=== PATIENT | male | born 1990 | race African-American/Black ===

== ENCOUNTER 2019-07-24 13:03 | Emergency (ER) | payer BC, SELFPAY ==
[2019-07-24 13:14] VITALS: BP 149/87; PULSE 72; RESP 20; TEMP 36.7; O2SAT 100
--- NOTE | 2019-07-24 13:14 | ED.DENTAL ---
HPI - Dental/Oral General Chief complaint: Dental/Oral Stated complaint: Tooth ache Time Seen by Provider: 07/24/19 13:15 Source: patient and RN notes reviewed History of Present Illness HPI Narrative: Patient is a 29-year-old male that presents the urgent care with complaints of left upper and lower dental pain. Patient states that started approximately 9 days ago and he is noticed some intermittent left swelling. Patient states that he has been taking Tylenol. Currently denies any fevers, bad taste in the mouth, nausea, vomiting. Patient states he did try to follow-up with his dentist but they are currently closed due to the pandemic. Patient denies any other acute complaints. No acute distress noted. Patient read the plan of care. Related Data Allergies Allergy/AdvReac Type Severity Reaction Status Date / Time No Known Allergies Allergy Verified 07/24/19 13:20 Review of Systems Review of Systems: Narrative: CONSTITUTIONAL: Denies fever, chills, or sweats. EYES: Denies visual changes, redness, or discharge. ENT: Denies rhinorrhea, congestion, sore throat, or otalgia. Reports of the left lower and upper dental pain CARDIOVASCULAR: Denies chest pain, palpitations, or edema. RESPIRATORY: Denies cough or dyspnea. GASTROINTESTINAL: Denies abdominal pain, nausea, vomiting, or diarrhea. GENITOURINARY: Denies dysuria or hematuria. SKIN: Denies rash or itching. MUSCULOSKELETAL: Denies back pain, joint pain, or myalgia. NEUROLOGIC: Denies headache, numbness, or weakness. All other systems reviewed are negative, except as documented in HPI. PMFSH Comments At the time of my signature, I reviewed and agree with the nursing past medical, surgical, social, and family history. There is no relevant family history pertinent to the patient complaint. Exam Narrative: Exam Narrative: GENERAL: This is a well-nourished, well-developed patient, in no apparent distress. HEAD: normocephalic, atraumatic. EYES: PERRL. Sclera clear/white. Vision is grossly intact. EARS: External ears normal NOSE: External nose normal with no obvious nasal discharge, nares without redness, no rhinorrhea. THROAT: Mucous membranes moist, posterior pharynx clear. Moderate swelling to the medial buccal aspect of the lower left quadrant without severe notable erythema or abscess. Good dentition without notable erosion or caries. NECK: Neck supple, non-tender without lymphadenopathy CARDIOVASCULAR: Regular rate and rhythm without murmurs, gallops, or rubs. RESPIRATORY: Clear to auscultation. Breath sounds equal bilaterally. No wheezes, rales, or rhonchi. SKIN: warm, intact with no suspicious lesions or rash, good texture and turgor. NEURO: awake, alert, and oriented to person, place and time. There were no obvious focal neurologic abnormalities. EXTREMITIES: No clubbing, cyanosis, or edema. Course Vital Signs Vital signs: Vital Signs Temperature 98.1 F 07/24/19 13:14 Pulse Rate 72 07/24/19 13:14 Respiratory Rate 20 07/24/19 13:14 Blood Pressure 149/87 H 07/24/19 13:14 Pulse Oximetry 100 07/24/19 13:14 Temperature 98.1 F 07/24/19 13:14 Pulse Rate 72 07/24/19 13:14 Respiratory Rate 07/24/19 13:14 Blood Pressure 149/87 H 07/24/19 13:14 Pulse Oximetry 100 07/24/19 13:14 Reviewed?patient is informed that they may have pre-hypertension or hypertension based on a blood pressure reading in the department. I recommend the patient call the primary care provider listed on their discharge instructions or a physician of their choice this week to arrange follow-up for further evaluation of possible pre-hypertension or hypertension. MDM - Dental/Oral MDM Narrative Medical decision making narrative: Advised patient to complete antibiotic regimen as prescribed. If the antibiotic does not seem to be helping, it is likely due to a failing root canal. Continue to use Tylenol as needed for pain. Follow-up with dentist as soon as possible. Even
== END 2019-07-24 13:28 | disposition home or self-care (01) ==
PROVIDERS: Emergency Provider Nurse Practitioner Family
DX: K08.89 Other specified disorders of teeth and supporting structures (principal)
CPT/HCPCS: 99213; G0463

== ENCOUNTER 2021-04-03 14:01 | Emergency (ER) | payer OTHER, SELFPAY ==
[2021-04-03 14:07] VITALS: BP 154/96; PULSE 74; RESP 16; TEMP 36.7; O2SAT 99
--- NOTE | 2021-04-03 14:40 | ED.MALEGU ---
HPI - Male Genitourinary General Chief complaint: Urogenital-Male Stated complaint: poss uti Source: patient and RN notes reviewed History of Present Illness HPI Narrative: This is a 30-year-old male who presented to urgent care with complaints of urgency frequency. Patient denies any hematuria, dysuria, abdominal pain, discharge, genital bumps or sores , penile pain ,STDs. Patient notes that he drinks 4 cups of coffee daily instructed patient to decrease use of caffeine due to his diuretic effect and see if that makes a difference. He was also instructed to follow-up with his primary care physician for a A1c to rule out diabetes. Patient does have a family history of diabetes he is obese and has a poor diet. Related Data Home Medications Medication Instructions Recorded Confirmed No Home Medications 04/03/21 04/03/21 Allergies Allergy/AdvReac Type Severity Reaction Status Date / Time No Known Allergies Allergy Verified 04/03/21 14:24 Review of Systems Review of Systems: A 14 organ system Review of Systems was performed and pertinent positives included in the HPI, otherwise remaining ROS is negative. [facility] Family History Family History (Updated 04/03/21 @ 14:44 by GUS DiazP-C) Other Family history non-contributory Exam Narrative: GENERAL: This is a well-nourished, well-developed patient, in no apparent distress. HEAD: normocephalic, atraumatic. EYES: PERRL. Sclera clear/white. Vision is grossly intact. EARS: External ears normal, auditory canals clear and without drainage, TMs normal without perforation. Hearing grossly intact. NOSE: External nose normal with no obvious nasal discharge, nares without redness, no rhinorrhea. THROAT: Mucous membranes moist, posterior pharynx clear. NECK: Neck supple, non-tender without lymphadenopathy, masses or thyromegaly. CARDIOVASCULAR: Regular rate and rhythm without murmurs, gallops, or rubs. RESPIRATORY: Clear to auscultation. Breath sounds equal bilaterally. No wheezes, rales, or rhonchi. GASTROINTESTINAL: Abdomen soft, non-tender, nondistended. Bowel sounds are active. No hepato-splenomegaly, or palpable masses. No guarding. SKIN: warm, intact with no suspicious lesions or rash, good texture and turgor. NEURO: awake, alert, and oriented to person, place and time. There were no obvious focal neurologic abnormalities. Steady gait EXTREMITIES: Normal range of motion. No edema. No calf tenderness. Negative Homans sign bilaterally. BACK: Nontender without deformity or crepitance. No flank tenderness. Course Course Emergency Course: Follow-up with primary care physician for diabetic screening Vital Signs Vital signs: Vital Signs Temperature 98.1 F 04/03/21 14:07 Pulse Rate 74 04/03/21 14:07 Respiratory Rate 16 04/03/21 14:07 Blood Pressure 154/96 H 04/03/21 14:07 Pulse Oximetry 99 04/03/21 14:07 Temperature 98.1 F 04/03/21 14:07 Pulse Rate 74 04/03/21 14:07 Respiratory Rate 16 04/03/21 14:07 Blood Pressure 154/96 H 04/03/21 14:07 Pulse Oximetry 99 04/03/21 14:07 MDM - Male Genitourinary Differential Diagnosis Differential diagnosis: Likely urinary tract infection, prostatitis, acute retention of urine and other (Diabetic) Lab Data Labs: Lab Results 04/03/21 Range/Units 14:19 C.trachomatis RNA (TMA) Pending N.gonorrhoeae RNA (TMA) Pending T. vaginalis Amp RNA Pending Urine Glucose Negative Reference Range: Negative Urine Bilirubin Negative Reference Range: Negative Urine Ketone Negative Reference Range: Negative Urine Specific [place] 1.020 Reference Range:1.001-1.035 Urine Blood Negative
== END 2021-04-03 14:43 | disposition home or self-care (01) ==
PROVIDERS: Emergency Provider Nurse Practitioner
DX: R35.89 Other polyuria (principal)
CPT/HCPCS: 81003; 87086; 87491; 87591; 87661; 99213; G0463